=== PATIENT | female | born 2000 | race Caucasian/White ===

== ENCOUNTER 2025-01-18 15:51 | Emergency (ER) | payer OTHER, SELFPAY ==
[2025-01-18 16:41] VITALS: BP 133/80; PULSE 93; RESP 17; TEMP 36.6; O2SAT 100; BMI 26.9
--- NOTE | 2025-01-18 16:46 | DI.RAD.S_ITS ---
PROCEDURE: XR WRIST RT MIN 3V INDICATIONS: fall TECHNIQUE: 4 views of the wrist were acquired. COMPARISON: None. FINDINGS AND IMPRESSION: Mildly displaced and comminuted intra-articular distal radius fracture. There is surrounding soft tissue swelling. Dictated by: Dino Fuentes M.D. on 01/18/2025 at 17:12 Approved by: Dino Fuentes M.D. on 01/18/2025 at 17:12
--- NOTE | 2025-01-18 16:47 | DI.RAD.S_ITS ---
PROCEDURE: XR KNEE RT 3V INDICATIONS: fall, pain TECHNIQUE: 3 views of the knee were acquired. COMPARISON: None. FINDINGS AND IMPRESSION: No acute displaced fracture. No dislocation. There is mild lateral tilt of the patella, age indeterminate. Correlate with location of symptoms. Mild peripatellar edema. No significant joint effusion. If there is high concern for occult injury, consider repeat radiography or cross-sectional imaging. Dictated by: Dino Fuentes M.D. on 01/18/2025 at 17:13 Approved by: Dino Fuentes M.D. on 01/18/2025 at 17:13
[2025-01-18 17:41] VITALS: BP 129/83; PULSE 81; RESP 18; O2SAT 99
[2025-01-18] MEDS: IBUPROFEN 600 MG TABLET PO (22:23)
--- NOTE | 2025-01-18 23:45 | ED_ITS ---
HPI - Extremity Injury (Upper) General Chief Complaint: Extremity Injury, Upper Stated Complaint: fall, rt wrist and knee injury Time Seen by Provider: 01/18/25 23:45 Source: patient Mode of arrival: Ambulatory History of Present Illness HPI narrative: 24-year-old female was hiking in [place] slipped, fell forward, complains of pain to her right face, right wrist, right knee. Able to walk on the right knee without swelling or popping sensation. No ankle or other injuries to the right lower extremity. She would not black out. She has no double vision. She has no significant headache. No other injuries recalled. Related Data Home Medications Medication Instructions Recorded Confirmed etonogestrel 0.12 mg-ethinyl vag ring vaginal 01/18/25 estradiol 0.015 mg/24 hr vaginal ring (EluRyng) Allergies Allergy/AdvReac Type Severity Reaction Status Date / Time No Known Drug Allergies Allergy Verified 01/18/25 16:44 Patient History Social History Smoking Status: Current every day smoker Smoking Status: Current every day smoker tobacco type: vaping Exam Narrative Exam Narrative: GENERAL: Well-developed patient, in mild distress. HEAD: No scalp injuries. EYES: Pupils equal round and reactive. Extraocular motions intact. No scleral icterus. No injection or drainage. Small ecchymoses right periorbital small abrasion, no diplopia on confrontational ENT: Nose without bleeding, purulent drainage. Throat without erythema, tonsillar hypertrophy or exudate. Airway patent. NECK: Trachea midline. Non tender, moves neck well, no paraspinal or central midline neck tenderness. No anterior neck injuries. CARDIOVASCULAR: Regular rate and rhythm without murmurs, gallops, or rubs. RESPIRATORY: Clear to auscultation. Breath sounds equal bilaterally. No wheezes, rales, or rhonchi. GASTROINTESTINAL: Abdomen soft, non-tender, nondistended. EXTREMITIES: Tenderness to right wrist without gross deformity, no tenderness to hand fingers, has good cap refill fingers, no tenderness to the proximal right arm or elbow or upper arm, nor along shoulder or clavicle. Right knee without gross deformity, no effusion, no tenderness medial or lateral joint line, nor along patella nor along patellar tendon. She can flex and extend at her right knee. BACK: Nontender without deformity or crepitance. No flank tenderness. NEURO: AOx3. Motor functions grossly nonfocal SKIN: No rash or erythema of visible areas Initial Vital Signs Initial Vital Signs: Vital Signs Temperature 98 F 01/18/25 16:41 Pulse Rate 93 H 01/18/25 16:41 Respiratory Rate 17 01/18/25 16:41 Blood Pressure 133/80 01/18/25 16:41 Pulse Oximetry 100 01/18/25 16:41 Oxygen Delivery Method Room Air 01/18/25 16:41 Course Orders Ordered: Discontinued Medications Bacitracin (Bacitracin Oint 0.9 Gm Pckt) 1 applic TOP NOW ONE Stop: 01/19/25 00:30 Ibuprofen (Ibuprofen 600 Mg Tablet) 600 mg PO NOW ONE Stop: 01/18/25 22:17 Last Admin: 01/18/25 22:23 Dose: 600 mg Documented By: Vital Signs Vital signs: Vital Signs - 8 hr 01/19/25 00:25 Pulse Rate 89 Respiratory Rate 17 Blood Pressure 118/77 Pulse Oximetry 98 Oxygen Delivery Method Room Air MDM - Extremity Injury (Upper) Imaging Data Extremity x-ray #1: Radiologist's Impression: [address] [address] XRay Report Signed Patient: Renate Albarado MR#: [id number] : 2000 Acct:[id number] Age/Sex: 24 / F Date of Service: 01/18/25 Loc: ED Accession Number: [id number] Procedure: XR knee RT 3V Ordering Provider: Donny Barba MD PROCEDURE: XR KNEE RT 3V INDICATIONS: fall, pain TECHNIQUE: 3 views of the knee were acquired. COMPARISON: None. FINDINGS AND IMPRESSION: No acute displaced fracture. No dislocation. There is mild lateral tilt of the patella, age indeterminate. Correlate with location of symptoms. Mild peripatellar edema. No significant joint effusion. If there is high concern for occult injury, consider repeat radiography or cross-sectional imaging. Dictated by: Dino Fuentes M.D. on 01/18/2025 at 17:13 Approved by: Dino Fuentes M.D. on 01/18/2025 at 17:13 Extremity x-ray #2: Radiologist's Impression: [address] [address] XRay Report Signed Patient: Renate Albarado MR#: [id number] : 2000 Acct:[id number] Age/Sex: 24 / F Date of Service: 01/18/25 Loc: ED Accession Number: [id number] Procedure: XR wrist RT min 3V Ordering Provider: Donny Barba MD PROCEDURE: XR WRIST RT MIN 3V INDICATIONS: fall TECHNIQUE: 4 views of the wrist were acquired. COMPARISON: None. FINDINGS AND IMPRESSION: Mildly displaced and comminuted intra-articular distal radius fracture. There is surrounding soft tissue swelling. Dictated by: Dino Fuentes M.D. on 01/18/2025 at 17:12 Approved by: Dino Fuentes M.D. on 01/18/2025 at 17:12 [facility] Narrative Medical decision making narrative: Ground level fall earlier today outside while hiking in rain in conditions. Right periorbital contusion and small abrasion, we discussed facial/brain imaging, hold for now. No diplopia on examination. Right wrist pain and tenderness with no gross deformity. Right wrist x-ray series, mild displaced and comminuted intra-articular distal radius fracture, with surrounding soft tissue swelling. See radiology report. Right knee x-ray, no obvious fracture, no description of knee effusion. Mild lateral tilt of the patella, age indeterminate. See radiology report. Orthopedic surgery Dr. Luz on-call happened to be looking at the results of the film remotely, called in to say that she had not believe there need to be any manipulation of the right wrist fracture, requests splinting, can follow up in splint. Sling applied. Right wrist splint applied, good cap refill. Antibiotic ointment to right periorbital contusion. Home with family, follow up with Orthopedic surgery for likely surgery in follow up of right wrist comminuted intra-articular fracture. Discharge Plan Departure Patient Disposition: Home Clinical Impression: Fall from ground level, Fracture of right distal radius, Strain of right knee, Abrasion of periorbital skin of right eye, Periorbital contusion of right eye Activity Restrictions/Additional Instructions: Ms Albarado, You had ground level fall [place] today, running, slipped conditions. Right periorbital contusion with small abrasion, no double vision on confrontational finger testing, no advanced imaging CT scan indicated at this time. Local antibiotic ointment over the abrasion advised. Right knee pain with reassuring examination with no gross effusion, no definite bony injury noted on x-ray, though some tilt of the knee cap patella noted, which could be anatomic and not related to your injury today. Follow up further as an outpatient with your regular doctor. Right wrist pain with swelling and tenderness. Unfortunately on x-ray you have a comminuted multiple areas of fracture in the distal radius bone that extends into the wrist joint, this is an unstable fracture and needs surgical st abilization in follow up. Dr. Luz apparently was remotely reading x-rays, and contacted us, did not feel that we need a manipulate those broken bones in any way tonight, just to put into a splint for stabilization. You will need surgery in follow up. Contact the office of Dr. Luz on Tuesday. Take Tylenol and or Motrin as needed for pain control. Keep elevated, wear sling when upright walking. Try applying ice if you are able to to reduce inflammation. Return earlier to this/nearest emergency department for any change worsening symptoms or any concerns prior. Thank you for allowing our team to evaluate you today. Prescriptions: No Action etonogestrel-ethinyl estradiol [EluRyng] 0.12-0.015 mg/24 hr ring VAGINAL Patient Comments: [NO ORIGINAL SIG] Referrals: Helen Colon MD [Physician] - Stand Alone Forms: Patient Portal/API/Survey
[2025-01-19 00:25] VITALS: BP 118/77; PULSE 89; RESP 17; O2SAT 98
== END 2025-01-19 00:56 | disposition home or self-care (01) ==
PROVIDERS: Emergency Provider Emergency Medicine
DX: S52.571A Other intraarticular fracture of lower end of right radius, initial encounter for closed fracture (principal); S86.811A Strain of other muscle(s) and tendon(s) at lower leg level, right leg, initial encounter; S00.211A Abrasion of right eyelid and periocular area, initial encounter; W01.0XXA Fall on same level from slipping, tripping and stumbling without subsequent striking against object, initial encounter
CPT/HCPCS: 29125; 73110; 73562; 99283; 99284

== ENCOUNTER → 2025-02-01 07:07 | Outpatient (CLI) | payer OTHER, SELFPAY ==
--- NOTE | 2025-02-01 07:09 | DI.MRI.S_ITS ---
PROCEDURE: MR KNEE RT WO CON INDICATIONS: SPRAIN RT KNEE TECHNIQUE: Noncontrast sagittal PD fast spin echo and T2 fast spin echo with fat saturation, sagittal 3-D FLASH with fat saturation; coronal T1 spin echo and PD fast spin echo with fat saturation, and axial PD fast spin echo with fat saturation through the knee. COMPARISON: [facility], CR, XR KNEE RT 3V, 01/18/2025, 16:46. FINDINGS: Image quality: Excellent. Bones: Marrow edema is present throughout the corners of the proximal tibia, predominantly along the lateral tibial plateau (13/19) without corresponding T1 hypointense fracture line. Additional marrow edema is present at the lateral femoral condyle subjacent to a minimally impacted fracture at the terminal sulcus (10/8). A small focus of marrow edema is also present at the anterior nonweightbearing medial femoral condyle (10/20) as well as the posterolateral fibular head (10/6). There is no other acute fracture or dislocation. Joints: There is a small knee joint effusion. There is no significant knee osteoarthritis. Lombardo's cyst: None. Menisci: The medial meniscus is normal. The lateral meniscus is normal. The posterior root attachments are normal. There may be partial tearing of the superior popliteomeniscal fascicles at the posterior horn of the lateral meniscus (10/9). Cruciate ligaments: There is a full-thickness tear of the anterior cruciate ligament at the midsubstance with a 0.4 cm gap between the torn fragments (10/15). The posterior cruciate ligament is normal. Collateral ligaments: There is high-grade tearing of the medial patellofemoral ligament at that approaches the abductor tubercle (8/17). There is a high-grade tear of the tibial collateral ligament near the femoral attachment point (13/18). There is full-thickness tearing of the medial meniscal femoral ligament (13/18). Periligamentous edema is present.. There is high-grade tearing of the anterolateral ligament (13/19; 8/19). There is high-grade tearing of the arcuate ligament at the fibular head attachment (10/6). There is also likely high-grade tearing of the oblique popliteal ligament at the posterior joint capsule (8/20). Popliteus Muscle/Tendon: Mild intramuscular edema/hemorrhage is present in the popliteus muscle. Popliteus tendon is intact. Extensor mechanism: The quadriceps tendon is normal. The patellar tendon is normal. The medial and lateral patellar retinacular attachments are normal. Articular cartilage: There is no significant articular cartilage defect. Other: Mild intramuscular edema in the lateral head of the gastrocnemius musculature (07/28). IMPRESSION: 1. Full-thickness midsubstance anterior cruciate ligament tear with associated multi ligamentous injuries to the medial collateral, lateral collateral, and oblique popliteal ligament complexes. Please note that the arcuate ligament is partially torn, which may impact the integrity of graft repair. 2. Minimally impacted terminal sulcus impaction fracture with associated marrow edema. 3. Microtrabecular fracture/marrow contusions at the distal femur and proximal tibia. 4. Popliteal muscle strain with hemorrhage. 5. Mild strain of the lateral head of the gastrocnemius musculature. Dictated by: Winston Fowler M.D. on 02/01/2025 at 13:58 Approved by: Winston Fowler M.D. on 02/01/2025 at 14:30
== END ==
PROVIDERS: Referring Provider Student in an Organized Health Care Education/Training Program; Visit Provider Student in an Organized Health Care Education/Training Program
DX: S83.511A Sprain of anterior cruciate ligament of right knee, initial encounter (principal); S72.424A Nondisplaced fracture of lateral condyle of right femur, initial encounter for closed fracture; S83.421A Sprain of lateral collateral ligament of right knee, initial encounter; S83.411A Sprain of medial collateral ligament of right knee, initial encounter; S76.111A Strain of right quadriceps muscle, fascia and tendon, initial encounter; S76.811A Strain of other specified muscles, fascia and tendons at thigh level, right thigh, initial encounter; S83.8X1A Sprain of other specified parts of right knee, initial encounter; M25.461 Effusion, right knee; X58.XXXA Exposure to other specified factors, initial encounter
CPT/HCPCS: 73721

== ENCOUNTER 2025-06-21 06:19 | Day surgery (SDC) | payer OTHER, SELFPAY ==
[2025-06-14 15:54] VITALS: BMI 27.1
[2025-06-21] VITALS (8 sets, daily range): BP systolic 116–146; BP diastolic 67–94; PULSE 72–100; RESP 14–23; TEMP 36.2–36.4; O2SAT 96–100; BMI 27.1
[2025-06-21] MEDS: LACTATED RINGERS 1,000 ML 42 ML IV (06:58)
--- NOTE | 2025-06-21 07:14 | PM.PREOP ---
Pre-operative Note COVID-19 COVID-19 status: Not tested Interval Note History & Physical reviewed/Exam performed by Physician: Yes Changes to H&P: No
[2025-06-21] MEDS: ACETAMINOPHEN IV 1,000 MG/100 ML VIAL 400 MG IV (07:20)
[2025-06-21] MEDS: SCOPOLAMINE 1 PATCH TOP (07:20)
[2025-06-21] MEDS: CEFAZOLIN 2 GM/100 ML PREMIX 100 ML IV (07:56)
--- NOTE | 2025-06-21 08:25 | SUR.OPER ---
Supine on padded OR bed, head on pillow, arms secured on padded arm boards at <90 degrees abduction, legs uncrossed, safety belt at thigh, tape over blanket over no-operative lower leg, lateral post to right.
[2025-06-21] MEDS: EPINEPHrine 1 MG/ML IRR (08:40)
[2025-06-21] MEDS: BUPIVACAINE 0.25% (PF) VIAL 30 ML INJ (09:51)
--- NOTE | 2025-06-21 10:30 | P.OP_ITS ---
Operative Date/Time/Diagnoses Date of procedure: 06/21/25 Time of procedure: 08:45 Pre-op diagnosis: right knee acl tear Post-op diagnosis: other Procedure & Clinicians Procedure: Right knee acl reconstruction with hamstring autograft and lateral meniscus repair Same procedure(s) as scheduled: No Surgeon: Steph Infante [employer] Intern: Cassandra Marroquin Click Yes if Unassisted: No Anesthesia Type: General and Peripheral nerve block Operative Notes Findings: Preoperative diagnosis: Right knee acl tear and lateral meniscus tear Procedure performed: Anterior Cruciate Ligament Reconstruction with hamstrings autograft and lateral meniscus repair Postoperative diagnosis: same as above Primary Surgeon: Steph Infante, DO Secondary Surgeon: Eugenia Marroquin Anesthesia: General LMA EBL: 20 ml Tourniquet: 100 minutes @ 250 mmHg Implants: 1)? Arthrex ACL Tightrope RT.? 2)? Arthrex 9x30 mm interference screw.? 3)? Arthrex fiberstitch meniscal suture Indication For Surgery: The risks, benefits, and alternatives were discussed. Risks include pain, bleeding, infection, damage to nearby structures and cartilage, lack of symptom relief, need for further surgery, DVT, PE, stroke, and . Written consent was obtained. Examination Under Anesthesia: ROM equal to the contralateral side. Grade IIB Bhavna Stable to varus and valgus stressing at 0 & 30 degrees. No mechanical sensations Diagnostic Arthroscopy: Loose bodies: None Synovium: normal Patella cartilage: Grade III chondromalacia medial facet? Trochlear cartilage: intact Medial femoral condyle cartilage: intact Medial tibial plateau cartilage: intact Medial meniscus: intact ACL: torn PCL: intact Lateral femoral condyle cartilage: intact Lateral tibial plateau cartilage: intact Lateral meniscus: vertical tear Procedure in Detail: The patient was met in the pre-operative hold area. Consent was verified and operative extremity was signed. The patient then met with anesthesia and was brought back to the operating room. The patient was placed supine on the operating table. A general anesthetic was administered. A well- padded tourniquet was placed on the thigh. The lower extremity was then prepped and draped in the usual sterile fashion. A timeout was performed per protocol. All were in agreement and we proceeded. The Esmarch was used to exsanguinate the limb and the tourniquet was elevated. An 11 blade scalpel was used to make an anterolateral arthroscopic portal. The arthroscope was introduced into the knee and the anteromedial portal was created under direct visualization using needle localization. A diagnostic arthroscopy was performed with the above-stated findings.? The meniscal ball rasp was used to rasp the lateral meniscus tear. The notch was cleared. ?The gracilis and semitendinosus were harvested in the typical fashion.? A 3 cm incision was made midway between the tibial tubercle and posterior aspect of the medial tibia.? Dissection was taken down to the sartorial fascia.? The underlying hamstring tendons were identified.? A hockey-stick type incision was made and the gracilis and semitendinosus were identified and closed tendon stripper was used to strip both tendons after the fascial attachments were removed.? The graft was prepped and placed on tension wrapped in a moist gauze and held on the back table until needed. I then proceeded to repair the lateral meniscus tear.? One Arthrex fiberstitch meniscal repair stitch was used.? The repair was stable. The femur was prepared using a shaver and radiofrequency wand until it was cleared of all tissue and back wall could be seen.? Care was taken to leave the PCL and the posterior capsule intact.? The remnant ACL tissue was debrided from the tibia and the center of the ACL insertion was marked.? The femoral drill guide was brought into the joint and placed into position to ensure the femoral tunnel was in the center of the [place] ACL footprint and had an adequate back wall.? A lateral incision was made through the skin and the IT band.? The bullet was brought down to bone.? The flipcutter was brought into the joint in the center of the guide.? It was flipped and the lateral wall was scored to ensure proper position.? A 20mm tunnel was drilled.? The flipcutter was brought back into the joint, flipped, and removed from the knee.? A suture was passed with the fiberstick.? The tibial guide was then brought in and the guide wire was brought into the center of the [place] ACL footprint.? It was 7mm anterior to the PCL, just off the medial cartilage, and inline with the posterior aspect of the anterior horn of the lateral meniscus.? The wire was overdrilled, taking care to protect the skin.? The passing suture was brought out the tibia. The tightrope sutures were then passed through the tunnels and out the lateral femur.? The graft was then brought into the joint and positioned correctly for seating into the femur.? With gentle pressure the graft was passed into the femur.? With tension on the tightrope button it was tightened until it rested on the lateral femur.? This was confirmed with flouroscopy. The graft was master into the tunnel. The graft was then cycled 20 times and had appropriate tension, with slight tightening at full extension.? The knee was placed into 15 degrees of flexion, a posterior drawer applied and an interference screw was placed into the tibia over a nitinol wire.? Fixation was excellent.? The wire was removed and was intact.? Full ROM and stable bhavna were confirmed.? Final images showing excellent graft position and tension were taken. The wounds were irrigated.? The incisions were closed with buried vicryl and Nylon. Steristrips were applied. A sterile dressing was applied. The patient was awakened and transferred to the recovery room in stable condition. Postoperative Plan: Same day discharge No weight bearing; brace locked in extension. Remove dressing in [address]aids Physical therapy to start after surgery Do not submerge wound until 4 weeks Follow up at 2 weeks for suture removal. Applied: implant(s) Estimated Blood Loss (mL): 20 Blood products transfused: none Tourniquet time (min): 100 Complications: none Post-operative Condition: stable Disposition: PACU
[2025-06-21] MEDS: OXYCODONE IR 5 MG TABLET PO (11:10)
== END 2025-06-21 11:25 | disposition home or self-care (01) ==
PROVIDERS: Referring Provider Orthopaedic Surgery; Visit Provider Orthopaedic Surgery
PROC: (CPT 29888; principal; 2025-06-21 07:45)
DX: S83.511A Sprain of anterior cruciate ligament of right knee, initial encounter (principal); G89.18 Other acute postprocedural pain; F17.210 Nicotine dependence, cigarettes, uncomplicated; W19.XXXA Unspecified fall, initial encounter; Y93.01 Activity, walking, marching and hiking; M22.41 Chondromalacia patellae, right knee
CPT/HCPCS: 29888; 29882; 64450; C1776; C1713; J0131; J0165; J0690; J1100; J2250; J2405; J2704; J3010